=== PATIENT | female | born 1985 | race Caucasian/White ===

== ENCOUNTER → 2017-09-10 | Outpatient (CLI) | payer BC ==
[~2017-09-10] MED LIST: AMOX500T10 PO; CLAR-1 PO; LEV125 PO; ONDA4TAB PO; PANT40TA65 PO; SUCR1TAB85 PO; antianxiety
--- NOTE | 2017-09-10 10:36 | RADIOLOGY IMAGING REPORT ---
FACILITY: [facility] PATIENT NAME: Keisha Nielsen : 1985 MR: [id number] V: [id number] EXAM DATE: ORDERING PHYSICIAN: TERESE FELIPE TECHNOLOGIST: Location: [facility] Patient: Keisha Nielsen : 1985 Visit/Account:[id number] Date of Sevice: 09/10/2017 Technique: CHEST PA AND LAT HISTORY: Shortness of breath COMPARISON: None available Findings: The lungs are clear. No pleural effusion or pneumothorax. The cardiomediastinal silhouett e is normal. Impression: 1. No acute cardiopulmonary process. Report Dictated By: Burak Jesus DO at 09/10/2017 10:31 AM Report E-Signed By: Burak Jesus DO at 09/10/2017 10:32 AM WSN:[id number]
== END ==
LOC: RAD 09:38
PROVIDERS: ATTEND Nurse Practitioner Family
DX: R06.02 Shortness of breath (principal)
CPT/HCPCS: 71046